=== PATIENT | female | born 2005 | race Caucasian/White ===

== ENCOUNTER 2024-10-22 09:00 | Inpatient (IN) ==
[2024-10-22] MEDS ORDERED: LIDOCAINE 1% LOCAL 20 ML VIAL INFIL PRN (09:15)
[2024-10-22] MEDS ORDERED: OXYTOCIN 30 UNITS/NSS 30 UNITS/500 ML BAG IV PRN ×2 (09:15→20:41)
[2024-10-22] MEDS: LACTATED RINGER'S 1,000 ML IV PRN (09:48)
[2024-10-22 10:07] LABS: Hematocrit (blood only) 33.4 % (37.0-47.0); Hemoglobin 11.1 g/dl (12.0-16.0); Mean Corpuscular Hemoglobin 28.5 pg (25.0-34.0); Mean Corpuscular Volume 85.6 fL (80.0-100.0); Platelet Count 309 K/uL (130-400); RDW Standard Deviation 39.4 fL (36.4-46.3); Red Blood Count 3.90 M/uL (4.20-5.40); White Blood Count 11.08 K/ul (4.8-10.8)
[2024-10-22] MEDS: PENICILLIN GK 6 MU in DEXTROSE 5% 250 ML IV STA (10:31)
[2024-10-22] MEDS ORDERED: diphenhydrAMINE 50 MG/ML VIAL IV PRN (12:07)
[2024-10-22] MEDS ORDERED: SODIUM CHLORIDE 0.9% PF INJ 10 ML VIAL EPI PRN (12:07)
[2024-10-22] MEDS ORDERED: NALOXONE HCL 0.4 MG/1 ML VIAL/CARP IV PRN (12:07)
[2024-10-22] MEDS ORDERED: NALBUPHINE HCL INJ 10 MG/ML AMP IV PRN (12:07)
[2024-10-22] MEDS ORDERED: NALOXONE HCL 1 MG in SODIUM CHLORIDE 0.9% 1,000 ML IV PRN (12:07)
[2024-10-22] MEDS ORDERED: BUPIVACAINE 0.25% PF 30 ML VIAL EPI PRN (12:07)
[2024-10-22] MEDS ORDERED: LIDOCAINE 2% MPF LOCAL 5 ML VIAL EPI PRN (12:07)
[2024-10-22] MEDS ORDERED: ROPIVACAINE 0.5% PF 5 MG/ML 20 ML VIAL EPI PRN (12:07)
[2024-10-22] MEDS ORDERED: fentANYL 2 MCG/ML BUPIVacaine 0.125%-NSS 100ML BAG EPI PRN (12:07)
--- NOTE | 2024-10-22 12:11 | Anesthesiology Consultation ---
Date of Service October 22, 2024 Assessment & Plan Chart Review Chart Review: Patient NOT seen in Pre Admission Testing and Acceptable Risk for Labor Epidural Consults Requested none ASA ASA2 Proposed Anesthesia Anesthesia Type: Labor Epidural Risk / Benefits Reviewed With: PT / POA / Parent / Guardian, Accepts Plan and Informed Consent Obtained History Height/Weight Height: 5 ft 9 in Weight: 92.079 kg Allergies Allergy/AdvReac Type Severity Reaction Status Date / Time No Known Allergies Allergy Verified 10/22/24 10:10 Medications Home Medications Medication Instructions Recorded Confirmed Last Taken vits no.124-ferrous fum 1 tab PO DAILY 10/22/24 10/22/24 Unknown 27 mg iron-folic acid 800 mcg tablet ( Vitamin) Active Medications Generic Name Dose Route Start Last Admin Trade Name Freq PRN Reason Stop Dose Admin Lactated Ringer's 1,000 mls @ 125 mls/hr 10/22/24 09:15 10/22/24 11:51 Lr IV 10/24/24 09:14 999 mls/hr .Q8H PRN Infusion L&D Protocol Protocol NPO Date Last Intake of Fluids: 10/22/24 Time Last Intake of Fluids: 12:00 Date Last Intake of Solids: 10/22/24 Time Last Intake of Solids: 03:00 Past Medical History Medical History history Cellulitis Depression with anxiety Varicella vaccination Exercise / Class Metabolic Activity 1 > 8 Run/Swim/Ski/Tennis Past Family History Family History Mother Preeclampsia Sister Preeclampsia Denies family history of Ovarian cancer Breast cancer Colorectal cancer Past Surgical History Surgical History Status post surgery cellulitis S/P tonsillectomy S/P wisdom tooth extraction Past Anesthesia History No Hx of Anesthesia Complications and No Family Hx of Anesthesia Complications History of PONV No Hx of PONV and No Hx of Motion Sickness Social History Smoking Status: Never smoker Do You Dip or Chew Tobacco: No Hx Alcohol Use: No Hx Substance Use: No substance use type: does not use Review of Systems ROS Unobtainable: All systems reviewed & are unremarkable except as noted in HPI & below Physical Exam Vital Signs Last Vital Signs Temp 36.8 C 10/22/24 09:18 Pulse 85 10/22/24 09:18 Resp 20 10/22/24 09:18 BP 140/73 10/22/24 09:18 ENMT Mouth: no TMJ abnormality Thyromental Distance: > or= 3.5 Finger Breadths Mallampati Class: II Neck normal visual inspection and trachea midline; neck extension not limited Respiratory normal respiratory effort Auscultation: lungs clear to auscultation bilaterally Cardiovascular Rate/Rhythm: regular rate and regular rhythm Heart Sounds: no murmur Musculoskeletal Spine: normal cervical ROM Extremities: full ROM of extremities Neurologic moves all extremities Psychiatric Orientation: alert and oriented x 3 Testing Laboratory Results 10/22/24 09:53
[2024-10-22] MEDS: fentANYL 2 MCG/ML BUPIVacaine 0.125%-NSS 100ML BAG ONE (12:33)
[2024-10-22] MEDS: SODIUM CHLORIDE 0.9% PF INJ 10 ML VIAL ONE (12:35)
[2024-10-22] MEDS: LIDOCAINE 2%/EPINEPHRINE 1:200,000 20 ML PF ONE (12:36)
[2024-10-22] MEDS: BUPIVACAINE 0.25% PF 30 ML VIAL ONE (12:37)
--- NOTE | 2024-10-22 12:40 | History & Physical Report ---
Date of Service October 22, 2024 Assessment & Plan (1) Normal labor: (2) Carrier of group B Streptococcus: Plan 19yo F at 39w6d presenting for induction of labor Fetus cat 1 heart tracing Labor - expectant management GBS+ s/p pencillin pitocin ordered s/p epidural History of Present Illness Chief Complaint: Induction of labor Primary Care Provider: MELVIN Kenny Pt is a 19y/o female currently at 39w6d with an ANNABEL 10/23/2024 who is here for induction of labor. She is not rubella immune. Has contractions every 3-5 minutes; adequate movements; no fluid loss; no bloody show External FHT and external uterine monitors used; Category 1 tracing; FHT 130bpm baseline with moderate variability. Had regular appointments with OB. Labs: Blood type: B+ Antibody screen: Neg H.1 (today) Hct: 33.4 (today) WBC: 11.08 (today) Plt: 309 (today) Rubella: Not immune, needs MMR vax post delivery VDRL/RPR: Negative Gonorrhea: _Negative Chlamydia: _Negative HIV: _Negative HbSAg: _Negative GBS: Positive Other screens: Pt states she did not receive genetic testing. Review of Systems : Denies fever, chills, sweats Denies shortness of breath, difficulty breathing, chest pain, palpitations, chest pressure. Denies breast pain. Denies dysuria. Denies headache or changes in vision. Allergies Allergy/AdvReac Type Severity Reaction Status Date / Time No Known Allergies Allergy Verified 10/22/24 10:10 Home Medications Medication Instructions Recorded Confirmed Type vits no.124-ferrous fum 1 tab PO DAILY 10/22/24 10/22/24 History 27 mg iron-folic acid 800 mcg tablet ( Vitamin) Patient History Medical History history Cellulitis Depression with anxiety Varicella vaccination Surgical History Status post surgery cellulitis S/P tonsillectomy S/P wisdom tooth extraction Family History Mother Preeclampsia Sister Preeclampsia Denies family history of Ovarian cancer Breast cancer Colorectal cancer Social History (Updated 03/06/24 @ 14:21 by Leighann Reyes) Smoking Status: Never smoker Tobacco Type: E-cigarettes / Vaping Second Hand Exposure: Yes; Do You Dip or Chew Tobacco: No; Hx Alcohol Use: No Hx Substance Use: No Preferred Language: Yoruba [employer] Supervisor Required: No Beliefs That Will Affect Care: None marital status: Single marital status details: marjan Pfeiffer (28) [phone] Current Living Situation: Significant Other Current Living Situation Comment: lives with marjan, 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 Skin: warm, dry, intact HEENT: NC/AT, anicteric sclera, conjunctiva without injection, moist mucus membranes Heart: +S1/S2, regular, no m/r/g Lungs: equal air entry bilaterally, no rales/rhonchi/wheezes Abd: +BS, soft, NT/ND, gravid uterus Ext: warm, no clubbing/cyanosis or edema Neuro: nonfocal, speech intact, no facial droop, moving all extremities on command. : FHR baseline 130, minimal variability, accelerations not appreciated, decelerations absent Results & Data Vital Signs (Past 12 Hours) Vital Signs Temp Pulse Resp BP Pulse Ox 10/22/24 12:29 85 10/22/24 12:29 131/78 10/22/24 12:28 100 10/22/24 12:28 90 10/22/24 12:23 100 10/22/24 12:23 86 10/22/24 12:20 93 10/22/24 12:20 100 H 10/22/24 12:18 100 10/22/24 12:18 86 10/22/24 12:14 85 10/22/24 12:14 132/87 10/22/24 12:13 99 10/22/24 12:13 85 10/22/24 09:18 36.8 C 85 20 140/73 07/08/25 09:14 85 140/73 Supervising Physician Co-Signing Physician Notes Resident Physician Supervision Note: I was present with Dr. Felix during the history and exam. I discussed the case with the resident and agree with the findings and plan as documented in the note. Any exceptions or clarifications are listed here: [None] Documented By: Kelly Alcocer, DO
[2024-10-22] MEDS: BUPIVACAINE 0.25% PF 30 ML VIAL EPI STA (12:42)
[2024-10-22] MEDS: SODIUM CHLORIDE 0.9% PF INJ 10 ML VIAL EPI STA (12:43)
[2024-10-22] MEDS: LIDOCAINE 2%/EPINEPHRINE 1:200,000 20 ML PF EPI STA (12:43)
--- NOTE | 2024-10-22 12:49 | History & Physical Report ---
Date of Service October 22, 2024 History of Present Illness Primary Care Provider: MELVIN Kenny Allergies Allergy/AdvReac Type Severity Reaction Status Date / Time No Known Allergies Allergy Verified 10/22/24 10:10 Home Medications Medication Instructions Recorded Confirmed Type vits no.124-ferrous fum 1 tab PO DAILY 10/22/24 10/22/24 History 27 mg iron-folic acid 800 mcg tablet ( Vitamin) Patient History Medical History history Cellulitis Depression with anxiety Varicella vaccination Surgical History Status post surgery cellulitis S/P tonsillectomy S/P wisdom tooth extraction Family History Mother Preeclampsia Sister Preeclampsia Denies family history of Ovarian cancer Breast cancer Colorectal cancer Social History (Updated 03/06/24 @ 14:21 by Leighann Reyes) Smoking Status: Never smoker Tobacco Type: E-cigarettes / Vaping Second Hand Exposure: Yes; Do You Dip or Chew Tobacco: No; Hx Alcohol Use: No Hx Substance Use: No Preferred Language: Polish Rehab Department Manager Required: No Beliefs That Will Affect Care: None marital status: Single marital status details: marjan Pfeiffer (28) [phone] Current Living Situation: Significant Other Current Living Situation Comment: lives with marjan, 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
[2024-10-22] MEDS ORDERED: ONDANSETRON INJ 2 MG/ML 2 ML VIAL IV PRN (13:27)
[2024-10-22] MEDS: ONDANSETRON INJ 2 MG/ML 2 ML VIAL ONE (13:38)
[2024-10-22] MEDS: PENICILLIN GK 3 MU in DEXTROSE 5% 100 ML IV PRN (14:16)
[2024-10-22] MEDS: OXYTOCIN 30 UNITS/NSS 30 UNITS/500 ML BAG IV PRN (16:26)
--- NOTE | 2024-10-22 20:37 | Delivery Summary ---
Vaginal Delivery Summary Date of Service October 22, 2024 Vaginal Delivery Summary and 1st Degree LAC Vaginal Delivery Summary: Pre-delivery diagnoses: 19yo @ 39 6/7, IOL, GBS+ Post-delivery diagnoses: same Procedure: spontaneous vaginal delivery Surgeon: eKlly Alcocer DO Complications: none Findings: Viable male . Apgars: 7/8 . Weight pending, please see nursery records Estimated QBL: 101cc Description of delivery: The patient progressed to complete with epidural anesthesia. She then began to push. She spontaneously vaginally delivered a viable from the cephalic presentation. The head delivered in MANUEL position. The anterior shoulder delivered, followed by the posterior shoulder, followed by the body. No nuchal. The baby was placed on mother's abdomen and a spontaneous cry was heard. Delayed cord clamping was employed, and the cord was doubly clamped and cut. Cord blood was obtained. The placenta was delivered spontaneously intact with a 3-vessel cord. The uterus and vagina were swept of clots and debris. IV pitocin was given. The uterus became firm. The cervix, vagina, and perineum were inspected. There were bilateral periurethral tears, and a 1st degree perineal laceration - these were reapproximated with 3-0 Vicryl. Excellent hemostasis was observed. The mother and baby are recovering in stable and good condition in the room. Sponge, needle and instrument counts were correct x 2. Kelly Alcocer DO [facility] Vaginal Delivery Charge Vaginal Delivery Codes: 81295 global code for the antepartum, delivery, and post- Delivery Type Details: and 1st Degree LAC
[2024-10-22] MEDS ORDERED: HYDROCORTISONE ACETATE 25 MG SUPP PR PRN (20:41)
[2024-10-22] MEDS ORDERED: DIPHTHER/TETAN/PERTUS Vaccine (Tdap, Adol/Adult) 0.5mL IM ONE (20:41)
[2024-10-22] MEDS: IBUPROFEN 600 MG TAB PO PRN (21:04)
[2024-10-22] MEDS: BENZOCAINE 20% SPRY 85 APPLN/85 GM CAN EXT PRN (21:04)
[2024-10-22] MEDS: DOCUSATE SODIUM 100 MG CAP PO SCH (21:08)
--- NOTE | 2024-10-22 21:11 | Anesthesia Procedure Note ---
Date of Service October 22, 2024 Anesthesia Post Epidural Note Vital Signs Vital Signs: Temp Pulse Resp BP Pulse Ox O2 Del Method 37.0 C 75 18 119/59 L 99 Room Air 10/22/24 19:15 10/22/24 21:03 10/22/24 20:50 10/22/24 21:03 10/22/24 20:48 10/22/24 19:15 Pain Intensity Abdomen: Pain Intensity: 5 Notes Mental Status: alert / awake / arousable and participated in evaluation Nausea / Vomiting: adequately controlled Pain: adequately controlled Airway Patency, RR, SpO2: stable & adequate BP & HR: stable & adequate Hydration State: stable & adequate Neuraxial Anesthesia: was administered and sensory block is resolving Anesthetic Complications: no major complications apparent Epidural: Removed without complications and With tip intact
--- NOTE | 2024-10-23 05:22 | Obstetrical Progress Note ---
Date of Service <Graeme Felix MD - Last Filed: 10/23/24 07:34> October 23, 2024 Assessment & Plan <Graeme Felix MD - Last Filed: 10/23/24 07:34> (1) care and examination: 19yo post- day 2 s/p Fells well today. Vital signs stable Continue post- care Encourage ambulation and Pain controlled with Ibuprofen Vitals and Hgb stable Advise MMR vaccine before d/c <Kelly Alcocer DO - Last Filed: 10/23/24 08:29> (1) care and examination: Subjective <Graeme Felix MD - Last Filed: 10/23/24 07:34> 19yo post- day 1 s/p Ambulation: ambulating normally Voiding: no voiding problems Passing Gas:: Yes Diet Tolerance:: regular diet Lochia:: Small Feeding Type:: breast feeding Current Pain Level: 5/10 controlled with ibuprofen Resting comfortably this AM in NAD. Denies HUFF, CP, SOB, N/V/D, LE pain/swelling. Physical Exam <Graeme Felix MD - Last Filed: 10/23/24 07:34> General: patient resting comfortably, NAD, non-toxic in appearance, answers questions appropriately. Skin: warm, dry, intact HEENT: NC/AT, anicteric sclera, conjunctiva without injection, moist mucus membranes. Heart: S1/S2 heard, regular, no m/r/g Lungs: equal air entry bilaterally, no rales/rhonchi/wheezes Abd: +BS, soft, NT/ND, uterine fundus firm at umbilicus Ext: warm, no clubbing/cyanosis or edema, Savannah's neg. Neuro: nonfocal, patient AAOx4, speech intact, no facial droop, moving all extremities on command. Results & Data <Graeme Felix MD - Last Filed: 10/23/24 07:34> Vital Signs (Past 12 Hours) Vital Signs Temp Pulse Pulse Resp BP BP Pulse Ox 10/23/24 03:20 36.8 C 87 18 122/77 10/22/24 23:00 10/22/24 23:00 36.9 C 67 18 106/59 L 10/22/24 22:35 36.9 C 18 10/22/24 22:33 67 10/22/24 22:33 106/59 L 10/22/24 22:18 62 10/22/24 22:18 115/60 10/22/24 22:05 18 10/22/24 22:03 76 10/22/24 22:03 116/66 10/22/24 21:48 75 10/22/24 21:48 117/67 10/22/24 21:35 18 10/22/24 21:33 81 10/22/24 21:33 112/57 L 10/22/24 21:20 18 10/22/24 21:18 79 10/22/24 21:18 114/57 L 10/22/24 21:05 18 10/22/24 21:03 75 10/22/24 21:03 119/59 L 10/22/24 20:50 18 10/22/24 20:48 99 10/22/24 20:48 84 10/22/24 20:48 114/63 10/22/24 20:43 100 10/22/24 20:43 90 10/22/24 20:38 98 10/22/24 20:38 98 H 10/22/24 20:35 18 10/22/24 20:33 98 10/22/24 20:33 102 H 10/22/24 20:33 100 H 10/22/24 20:33 125/60 10/22/24 20:28 97 10/22/24 20:28 102 H 10/22/24 20:24 108 H 10/22/24 20:24 120/57 L 10/22/24 20:23 97 10/22/24 20:23 116 H 10/22/24 20:18 99 10/22/24 20:18 122 H 10/22/24 20:14 83 L 10/22/24 20:14 121 H 10/22/24 20:13 97 10/22/24 20:13 118 H 10/22/24 20:08 98 10/22/24 20:08 114 H 10/22/24 20:07 91 10/22/24 20:07 104 H 10/22/24 20:03 95 10/22/24 20:03 104 H 10/22/24 20:00 18 10/22/24 20:00 18 10/22/24 19:58 99 10/22/24 19:58 98 H 10/22/24 19:53 100 10/22/24 19:53 91 H 10/22/24 19:49 99 H 10/22/24 19:49 110/64 10/22/24 19:48 100 10/22/24 19:48 98 H 10/22/24 19:43 99 10/22/24 19:43 91 H 10/22/24 19:38 98 10/22/24 19:38 98 H 10/22/24 19:34 93 H 10/22/24 19:34 104/59 L 10/22/24 19:33 98 10/22/24 19:33 93 H 10/22/24 19:30 18 10/22/24 19:30 18 10/22/24 19:28 99 10/22/24 19:28 92 H 10/22/24 19:23 98 10/22/24 19:23 92 H 10/22/24 19:19 90 10/22/24 19:19 105/60 10/22/24 19:18 97 10/22/24 19:18 86 10/22/24 19:15 37.0 C 18 10/22/24 19:15 10/22/24 19:15 18 10/22/24 19:15 37.0 C 18 10/22/24 19:13 95 10/22/24 19:13 100 H 10/22/24 19:08 97 10/22/24 19:08 102 H 10/22/24 19:04 118 H 10/22/24 19:04 97/54 L 10/22/24 19:03 97 10/22/24 19:03 117 H 10/22/24 18:58 98 10/22/24 18:58 118 H 10/22/24 18:53 98 10/22/24 18:53 111 H 10/22/24 18:50 127 H 10/22/24 18:50 100/52 L 10/22/24 18:48 98 10/22/24 18:48 107 H 10/22/24 18:43 98 10/22/24 18:43 101 H 10/22/24 18:38 98 10/22/24 18:38 117 H 10/22/24 18:34 37.2 C 16 10/22/24 18:34 78 10/22/24 18:34 117/65 10/22/24 18:33 99 10/22/24 18:33 88 10/22/24 18:28 98 10/22/24 18:28 73 10/22/24 18:23 98 10/22/24 18:23 76 10/22/24 18:19 80 10/22/24 18:19 115/59 L 10/22/24 18:18 98 10/22/24 18:18 73 10/22/24 18:13 98 10/22/24 18:13 76 10/22/24 18:08 98 10/22/24 18:08 72 10/22/24 18:05 85 10/22/24 18:05 119/61 10/22/24 18:03 98 10/22/24 18:03 77 10/22/24 17:58 99 10/22/24 17:58 78 10/22/24 17:53 98 10/22/24 17:53 75 10/22/24 17:49 78 10/22/24 17:49 114/60 10/22/24 17:48 97 10/22/24 17:48 72 10/22/24 17:43 99 10/22/24 17:43 73 10/22/24 17:38 99 10/22/24 17:38 76 10/22/24 17:35 79 10/22/24 17:35 115/62 10/22/24 17:33 100 10/22/24 17:33 78 10/22/24 17:28 100 10/22/24 17:28 88 10/22/24 17:23 99 10/22/24 17:23 84 O2 Del Method 10/23/24 03:20 Room Air 10/22/24 23:00 Room Air 10/22/24 23:00 Room Air 10/22/24 22:35 10/22/24 22:33 10/22/24 22:33 10/22/24 22:18 10/22/24 22:18 10/22/24 22:05 10/22/24 22:03 10/22/24 22:03 10/22/24 21:48 10/22/24 21:48 10/22/24 21:35 10/22/24 21:33 10/22/24 21:33 10/22/24 21:20 10/22/24 21:18 10/22/24 21:18 10/22/24 21:05 10/22/24 21:03 10/22/24 21:03 10/22/24 20:50 10/22/24 20:48 10/22/24 20:48 10/22/24 20:48 10/22/24 20:43 10/22/24 20:43 10/22/24 20:38 10/22/24 20:38 10/22/24 20:35 10/22/24 20:33 10/22/24 20:33 10/22/24 20:33 10/22/24 20:33 10/22/24 20:28 10/22/24 20:28 10/22/24 20:24 10/22/24 20:24 10/22/24 20:23 10/22/24 20:23 10/22/24 20:18 10/22/24 20:18 10/22/24 20:14 10/22/24 20:14 10/22/24 20:13 10/22/24 20:13 10/22/24 20:08 10/22/24 20:08 10/22/24 20:07 10/22/24 20:07 10/22/24 20:03 10/22/24 20:03 10/22/24 20:00 10/22/24 20:00 10/22/24 19:58 10/22/24 19:58 10/22/24 19:53 10/22/24 19:53 10/22/24 19:49 10/22/24 19:49 10/22/24 19:48 10/22/24 19:48 10/22/24 19:43 10/22/24 19:43 10/22/24 19:38 10/22/24 19:38 10/22/24 19:34 10/22/24 19:34 10/22/24 19:33 10/22/24 19:33 10/22/24 19:30 10/22/24 19:30 10/22/24 19:28 10/22/24 19:28 10/22/24 19:23 10/22/24 19:23 10/22/24 19:19 10/22/24 19:19 10/22/24 19:18 10/22/24 19:18 10/22/24 19:15 10/22/24 19:15 Room Air 10/22/24 19:15 10/22/24 19:15 10/22/24 19:13 10/22/24 19:13 10/22/24 19:08 10/22/24 19:08 10/22/24 19:04 10/22/24 19:04 10/22/24 19:03 10/22/24 19:03 10/22/24 18:58 10/22/24 18:58 10/22/24 18:53 10/22/24 18:53 10/22/24 18:50 10/22/24 18:50 10/22/24 18:48 10/22/24 18:48 10/22/24 18:43 10/22/24 18:43 10/22/24 18:38 10/22/24 18:38 10/22/24 18:34 10/22/24 18:34 10/22/24 18:34 10/22/24 18:33 10/22/24 18:33 10/22/24 18:28 10/22/24 18:28 10/22/24 18:23 10/22/24 18:23 10/22/24 18:19 10/22/24 18:19 10/22/24 18:18 10/22/24 18:18 10/22/24 18:13 10/22/24 18:13 10/22/24 18:08 10/22/24 18:08 10/22/24 18:05 10/22/24 18:05 10/22/24 18:03 10/22/24 18:03 10/22/24 17:58 10/22/24 17:58 10/22/24 17:53 10/22/24 17:53 10/22/24 17:49 10/22/24 17:49 10/22/24 17:48 10/22/24 17:48 10/22/24 17:43 10/22/24 17:43 10/22/24 17:38 10/22/24 17:38 10/22/24 17:35 10/22/24 17:35 10/22/24 17:33 10/22/24 17:33 10/22/24 17:28 10/22/24 17:28 10/22/24 17:23 10/22/24 17:23 Supervising Physician <Kelly Alcocer DO - Last Filed: 10/23/24 08:29> Co-Signing Physician Notes Resident Physician Supervision Note: I interviewed and examined the patient. Discussed with Dr. Feilx and agree with findings and plan as documented in the note. Any exceptions or clarifications are listed here: PPD#1 doing well. Routine care. Documented By: Kelly Alcocer DO
[2024-10-23 06:26] LABS: Hematocrit (blood only) 27.9 % (37.0-47.0); Hemoglobin 9.4 g/dl (12.0-16.0)
[2024-10-23] MEDS: ACETAMINOPHEN 325 MG TAB PO PRN (08:50)
[2024-10-23] MEDS: PRENATAL VITAMIN 1 TAB PO SCH (08:50)
[2024-10-23] MEDS: MEASLES, MUMPS & RUBELLA VIRUS VACCINE (MMR) 0.5ML VIAL SQ ONE (09:08)
--- NOTE | 2024-10-24 05:38 | Obstetrical Progress Note ---
Date of Service <Graeme Felix MD - Last Filed: 10/24/24 06:56> October 24, 2024 Assessment & Plan <Graeme Felix MD - Last Filed: 10/24/24 06:56> (1) care and examination: 19yo post- day 2 s/p Fells well today. Vital signs stable Continue post- care Encourage ambulation and Pain controlled with Ibuprofen, Tylenol, and oxycodone/tylenol Hgb stable s/p MMR vaccine this visit Plan to d/c. Follow with OB provider in 6 weeks D/c instructions discussed <Marie Yarbrough MD, FACOG - Last Filed: 10/24/24 07:46> (1) care and examination: Subjective <Graeme Felix MD - Last Filed: 10/24/24 06:56> 19yo post- day 2 s/p Ambulation: ambulating normally Voiding: no voiding problems Passing Gas:: Yes Diet Tolerance:: regular diet Lochia:: Small Feeding Type:: breast feeding Current Pain Level: 8/10 controlled with ibuprofen, tylenol, and oxycodone/tylenol Resting comfortably this AM in NAD Denies CP, SOB, N/V/D, LE pain/swelling Slight headache attributed to lack of sleep Physical Exam <Graeme Felix MD - Last Filed: 10/24/24 06:56> General: patient resting comfortably, NAD, non-toxic in appearance, answers questions appropriately. Skin: warm, dry, intact Heart: S1/S2 heard, regular, no m/r/g Lungs: equal air entry bilaterally, no rales/rhonchi/wheezes Abd: +BS, soft, NT/ND, uterine fundus firm below umbilicus Ext: warm, no clubbing/cyanosis or edema, Savannah's neg. Neuro: nonfocal, patient AAOx4, speech intact, no facial droop, moving all extremities on command Results & Data <Graeme Felix MD - Last Filed: 10/24/24 06:56> Vital Signs (Past 12 Hours) Vital Signs Temp Pulse Pulse Resp BP BP Pulse Ox 10/24/24 00:01 36.5 C 78 18 136/85 97 10/23/24 20:30 36.5 C 76 18 133/86 98 O2 Del Method 10/24/24 00:01 Room Air 10/23/24 20:30 Room Air Supervising Physician <Marie Yarbrough MD, FACOG - Last Filed: 10/24/24 07:46> Co-Signing Physician Notes Resident Physician Supervision Note: I interviewed and examined the patient. Discussed with Dr. Felix and agree with findings and plan as documented in the note. Any exceptions or clarifications are listed here: stable doing well. eating, voiding, ambulating. no bleeding issues. abd soft ff 2 down nt, ext nt calves. ppd #2 s/p ready to go home, instructions reviewed, f/u 6 wk pp check. breast/mmr given, rh pos. Documented By: Marie Yarbrough MD, FACOG Resident Activity Tracking <Graeme Felix MD - Last Filed: 10/24/24 06:56> Resident Involvement: Resident Care Provided Care Provided: OB Delivery (PP)
[2024-10-24 15:29] VITALS: RESP 16; TEMP 97.7; O2SAT 98
[2024-10-24 15:40] VITALS: BP 133/86; PULSE 76
== END 2024-10-24 15:40 | disposition home or self-care (01) | DRG 807 ==
LOC: OPB 09:00 → 4S1 09:05 → 4E2 23:29